=== PATIENT | male | born 2000 | race Two or more races ===

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

== ENCOUNTER 2019-01-09 14:08 | Emergency (ER) | payer MEDICAID, OTHER ==
[~2019-01-09] VITALS: Ht 172.7 cm; Wt 74.8 kg
[~2019-01-09 14:08] MED LIST changes: +ZOFRAN4 M3 ORAL
[2019-01-09] MEDS ORDERED: AMOXICILLIN125 MG ORAL (14:15)
[2019-01-09 14:17] VITALS: BP 112/73
[2019-01-09] MEDS ORDERED: TRIAMCINOLONE A15 G1 TP (14:26)
--- NOTE | 2019-01-09 14:28 | NUR ---
ED Nurse Note: Patient walked in to ER from home due to Rt leg bug bite which occured 2 days ago. Patient alert and oriented x4 and ambulatory. skin clean and intact. Calm and cooperative. no acute distress noted at this moment.
[2019-01-09 14:35] VITALS: BP 124/78
--- NOTE | 2019-01-09 14:35 | NUR ---
ED Nurse Note: Pt cleared by health care Provider for discharge. DC instructions/prescription was given and explained to pt and verbalized understanding of teachings. All medical deviecs such as ID band removed. Pt is AAO x4, ambulatory and left with all personal belongings.
--- NOTE | 2019-01-09 14:35 | Emergency Room Report ---
History of Present Illness General Chief Complaint: Skin Rash/Abscess Source: Patient Present Illness HPI 18-year-old male accompanied by mother complaining of insect bites on bilateral ankles since 2 days ago. No pain, itchy. No aggravating/relieving factors. No current medications. Denies fever, chills, URI symptoms, shortness of breath, chest pain, Allergies: Coded Allergies: No Known Allergies (Unverified , 10/31/14) Patient History Past Medical History: none Past Surgical History: none Social History: Denies: smoking, alcohol use, drug use Nursing Documentation-[facility] Past Medical History: No History, Except For Review of Systems All Other Systems: negative except mentioned in HPI Physical Exam Vital Signs Date Time Temp Pulse Resp B/P (MAP) Pulse Ox O2 Delivery O2 Flow Rate FiO2 01/09/19 14:11 99.1 120 18 112/73 (86) 96 Room Air Sp02 EP Interpretation: reviewed, normal General Appearance: no apparent distress, alert, GCS 15, non-toxic Respiratory: chest non-tender, lungs clear, normal breath sounds, speaking full sentences Cardiovascular #1: regular rate, rhythm, no edema Neurologic: motor strength/tone normal, normal gait Skin: other - few erythematous papules on bilateral ankles, no surrounding edema or erythema. No discharge. Medical Decision Making PA Attestation This patient was seen under the direct supervision of Dr. Ho, who directed all aspects of care and diagnostic interpretation. Diagnostic Impression: Primary Impression: Insect bite of ankle, right Qualified Codes: S90.561A - Insect bite (nonvenomous), right ankle, initial encounter; W57.XXXA - Bitten or stung by nonvenomous insect and other nonvenomous arthropods, initial encounter Additional Impression: Insect bite of ankle, left Qualified Codes: S90.562A - Insect bite (nonvenomous), left ankle, initial encounter; W57.XXXA - Bitten or stung by nonvenomous insect and other nonvenomous arthropods, initial encounter ER Course ED course HPI: 18-year-old male accompanied by mother complaining of insect bites on bilateral ankles since 2 days ago. No pain, itchy. No aggravating/relieving factors. No current medications. Denies fever, chills, URI symptoms, shortness of breath, chest pain, HPI & PE consistent with: Insect bite of bilateral ankles. Orders/ Interventions: Patient is well-appearing, afebrile. Normal vitals. Exam consistent with insect bite of bilateral ankles, no signs and symptoms of cellulitis. Disposition: Rx for [facility] 0.1% cream given. Environmental control advised. At this time pt. is stable for d/c to home. Will provide printed patient care instructions, and any necessary prescriptions. Care plan and follow up instructions have been discussed with the patient prior to discharge. Please note that this Emergency Department Report was dictated using Chargebackprep room supervisor technology software, occasionally this can lead to erroneous entry secondary to interpretation by the dictation equipment. Last Vital Signs Date Time Temp Pulse Resp B/P (MAP) Pulse Ox O2 Delivery O2 Flow Rate FiO2 01/09/19 14:17 99.1 86 18 112/73 96 Room Air Disposition: HOME, SELF-CARE Condition: Stable Scripts Triamcinolone Acetonide (Triamcinolone Acetonide 0.5% Cream*) 15 Gm Cream..g. 1 APPLIC TP TID for itch for 7 Days, #30 GM Prov: Nanette Saunders 01/09/19 Referrals: [facility],REFERRING (PCP) Patient Instructions: Insect Bite, [id number] Additional Instructions: Avoid scratching affected area. Apply topical medication as Rx. Followup with PCP in 2-3 days or return to ED if worsening symptoms, new symptoms, or sudden change in condition. Nanette Saunders Jan 09, 2019 14:35
== END 2019-01-09 14:35 | disposition home or self-care (01) ==
LOC: EMR 14:24
DX: S90.561A Insect bite (nonvenomous), right ankle, initial encounter (principal); S90.562A Insect bite (nonvenomous), left ankle, initial encounter; W57.XXXA Bitten or stung by nonvenomous insect and other nonvenomous arthropods, initial encounter
CPT/HCPCS: 99282

== ENCOUNTER 2019-05-05 14:22 | Emergency (ER) | payer OTHER ==
[~2019-05-05] VITALS: Ht 172.7 cm; Wt 67.1 kg
[~2019-05-05 14:22] MED LIST changes: +AMOXICILLIN125 MG ORAL; +TRIAMCINOLONE A15 G1 TP
[2019-05-05 14:26] VITALS: BP 114/79
--- NOTE | 2019-05-05 15:08 | Emergency Room Report ---
History of Present Illness General Chief Complaint: Sore Throat Source: Patient Present Illness HPI 18-year-old male with no segment past medical history here complaining of 1 week of a 1010 sore throat and tonsillar swelling. Denies any fever, cough and congestion. Has not taken medication for symptom relief. Denies any recent travel or coming contact with people who have recently traveled. Reports that he consumes a lot of spicy acidic food, has left upper quadrant abdominal pain which is intermittent. Also complains of 1 day of few bouts of nonbloody diarrhea. Reports that his diarrhea was red however was after he had consumed a lot of hot flaming Cheetos. Denies any nausea or vomiting. Sitting comfortably with stable vital signs. In no apparent distress. Denies tobacco smoke, drug use, no other associated symptoms. Allergies: Coded Allergies: No Known Allergies (Unverified , 10/31/14) Patient History Past Medical History: see triage record Past Surgical History: none Pertinent Family History: none Immunizations: UTD Reviewed Nursing Documentation: PMH: Agreed; PSxH: Agreed Nursing Documentation-PMH Past Medical History: No Stated History Review of Systems All Other Systems: negative except mentioned in HPI Physical Exam Vital Signs Date Time Temp Pulse Resp B/P (MAP) Pulse Ox O2 Delivery O2 Flow Rate FiO2 05/05/19 14:26 98.2 80 17 114/79 (91) 99 Room Air Sp02 EP Interpretation: reviewed, normal General Appearance: no apparent distress, alert, GCS 15, non-toxic Head: normocephalic, atraumatic Eyes: bilateral eye normal inspection, bilateral eye PERRL ENT: tonsillar swelling, tonsillar exudate Neck: full range of motion, supple, other - Anterior cervical lymphadenopathy Respiratory: chest non-tender, lungs clear, normal breath sounds, no rhonchi, no wheezing, speaking full sentences Cardiovascular #1: regular rate, rhythm, no edema, no murmur Gastrointestinal: normal bowel sounds, non tender, soft, no mass, no peritonitis, no bruit, no guarding Rectal: deferred Genitourinary: no CVA tenderness Musculoskeletal: back normal, normal range of motion Neurologic: alert, motor strength/tone normal, oriented x3, sensory intact, responsive, speech normal Psychiatric: judgement/insight normal, memory normal, mood/affect normal, no suicidal/homicidal ideation Skin: no rash, warm/dry Lymphatic: adenopathy - Cervical lymphadenopathy Medical Decision Making PA Attestation All my diagnosis and treatment plans were reviewed ad discussed with my supervising physician Dr. Ho Diagnostic Impression: Primary Impression: Strep pharyngitis Additional Impressions: Gastritis Acute diarrhea ER Course 18-year-old male with no segment past medical history here complaining of 1 week of a 1010 sore throat and tonsillar swelling. Denies any fever, cough and congestion. Has not taken medication for symptom relief. Denies any recent travel or coming contact with people who have recently traveled. Reports that he consumes a lot of spicy acidic food, has left upper quadrant abdominal pain which is intermittent. Also complains of 1 day of few bouts of nonbloody diarrhea. Reports that his diarrhea was red however was after he had consumed a lot of hot flaming Cheetos. Denies any nausea or vomiting. Sitting comfortably with stable vital signs. In no apparent distress. Denies tobacco smoke, drug use, no other associated symptoms. Ddx considered but are not limited to: strep pharyngitis, URI, tonsillitis, peritonsillar abscess, influneza, gastroenteritis, gastritis, chronic diarrhea Vital signs: are WNL, pt. is afebrile H&PE are most consistent with: Acute diarrhea, gastritis, strep pharyngitis ORDERS: Amoxicillin, omeprazole, dicyclomine, Tylenol ED INTERVENTIONS: None required at this time. DISCHARGE: At this time pt. is stable for d/c to home. Will provide printed patient care instructions, and any necessary prescriptions. Care plan and follow up instructions have been discussed with the patient prior to discharge. Avoid eating spicy and acidic food, take medication as directed, increase oral hydration, follow-up with your primary doctor for stool culture and ova and parasite. Last Vital Signs Date Time Temp Pulse Resp B/P (MAP) Pulse Ox O2 Delivery O2 Flow Rate FiO2 05/05/19 14:26 98.2 80 17 114/79 99 Room Air Disposition: HOME, SELF-CARE Condition: Stable Scripts Omeprazole (OMEPRAZOLE) 20 Mg Tablet. 20 MG ORAL DAILY, #30 TAB Prov: Americo Jackson 05/05/19 Dicyclomine Hcl* (DICYCLOMINE HCL*) 10 Mg Capsule 10 MG ORAL TID, #10 CAP Prov: Americo Jackson 05/05/19 Acetaminophen* (TYLENOL EXTRA STRENGTH*) 500 Mg Tablet 500 MG ORAL Q8H PRN for Prn Headache/Temp > 101, #30 TAB 0 Refills Prov: Americo Jackson 05/05/19 Amoxicillin* (AMOXIL*) 500 Mg Capsule 500 MG ORAL BID for 10 Days, #20 CAP Prov: Americo Jackson 05/05/19 Patient Instructions: Diarrhea, Adult, [id number], Gastritis, Adult, Easy-to- Read Additional Instructions: Medication as directed, increase oral hydration, avoid eating spicy and acidic foods, if continue to follow-up with your primary care provider for stool culture, ova and parasite, if worsening symptoms return to emergency room. Americo Jackson May 05, 2019 15:08
[2019-05-05] MEDS ORDERED: AMOXICILLIN500 MG ORAL (15:11)
[2019-05-05] MEDS ORDERED: OMEPRAZOLE20 M3 ORAL (15:11)
[2019-05-05] MEDS ORDERED: DICYCLOMINE HCL10 MG ORAL (15:11)
[2019-05-05] MEDS ORDERED: TYLENOL EXTRA500 MG ORAL (15:11)
[2019-05-05 15:26] VITALS: BP 114/79
== END 2019-05-05 15:26 | disposition home or self-care (01) ==
LOC: EMR 15:09
DX: J02.0 Streptococcal pharyngitis (principal); K29.70 Gastritis, unspecified, without bleeding; R19.7 Diarrhea, unspecified
CPT/HCPCS: 99282